=== PATIENT | male | born 1980 | race Caucasian/White ===

== ENCOUNTER 2017-12-01 20:32 | Emergency (ER) | payer BC, OTHER ==
[~2017-12-01] VITALS: Ht 182.9 cm; Wt 100.0 kg
[2017-12-01 21:45] VITALS: BP 152/84; PULSE 79; RESP 14; TEMP 97.8; O2SAT 97
[2017-12-02] MEDS ORDERED: SODIUM CHLOR 0.9% 1000 ML INJ 1,000 ML IV ONE (03:45)
--- NOTE | 2017-12-02 03:56 | PD ---
HPI Chief Complaint: Medical Clearance Time Seen by Provider: 03:35 Travel History International Travel<30 days: No Contact w/Intl Traveler<30days: No Traveled to known affect area: No History of Present Illness HPI Patient is a 37-year-old male presenting to the emergency department under [place] act due to public intoxication. Patient allegedly called a hotline and made suicidal statements. Patient admitted to drinking too much tonight. He denies any psychiatric history of previous suicide attempt. Symptom onset is unknown, symptoms were likely triggered from alcohol. He has no physical complaints at this time. [facility] Past Medical History Medical History: Denies Significant Hx Diminished Hearing: No Tetanus Vaccination: Unknown Influenza Vaccination: No Past Surgical History Surgical History: No Previous Surgery Social History Alcohol Use: Yes Tobacco Use: No Substance Use: No Allergies-Medications (Allergen,Severity, Reaction): Coded Allergies: No Known Allergies (Unverified , 12/01/17) Review of Systems Except as stated in HPI: all other systems reviewed are Neg Psychiatric: Positive: Substance Abuse, No: Suicidal Ideations, Homicidal Ideation Physical Exam Narrative GENERAL: Well-developed, well-nourished, alert male. Presenting in no acute distress. SKIN: Warm and dry. HEAD: Atraumatic. Normocephalic. EYES: Pupils equal and round. No scleral icterus. No injection or drainage. ENT: No nasal bleeding or discharge. Mucous membranes pink and moist. NECK: Trachea midline. No JVD. CARDIOVASCULAR: Regular rate and rhythm. RESPIRATORY: No accessory muscle use. Clear to auscultation. Breath sounds equal bilaterally. GASTROINTESTINAL: Abdomen soft, non-tender, nondistended. Hepatic and splenic margins not palpable. MUSCULOSKELETAL: Extremities without clubbing, cyanosis, or edema. No obvious deformities. NEUROLOGICAL: Awake and alert. No obvious cranial nerve deficits. Motor grossly within normal limits. Five out of 5 muscle strength in the arms and legs. Normal speech. PSYCHIATRIC: Appropriate mood and affect; insight and judgment normal. Data Data Last Documented VS Vital Signs Date Time Temp Pulse Resp B/P (MAP) Pulse Ox O2 Delivery O2 Flow Rate FiO2 12/01/17 21:45 97.8 79 14 152/84 (106) 97 Room Air Orders Orders Alcohol (Ethanol) (12/02/17 03:34) Iv Access Insert/Monitor (12/02/17 03:34) Sodium Chlor 0.9% 1000 Ml Inj (Ns 1000 M (12/02/17 03:45) Labs Laboratory Tests Test 12/02/17 03:51 Ethyl Alcohol Level 108 MG/DL MDM Medical Decision Making Medical Screen Exam Complete: Yes Emergency Medical Condition: Yes Interpretation(s) Vital Signs Date Time Temp Pulse Resp B/P (MAP) Pulse Ox O2 Delivery O2 Flow Rate FiO2 12/01/17 21:45 97.8 79 14 152/84 (106) 97 Room Air Differential Diagnosis Intoxication versus mood disorder versus suicidal ideations versus other Narrative Course Patient is well-appearing 37-year-old male presenting under [place] act due to intoxication and making suicidal statements to a hotline. Vital signs are stable, patient is in the emergency department for 7 hours prior to my assessment. He currently appears sober, he is cooperative and calm. Will assess an alcohol level and if normal patient will be discharged home. Alcohol level is 108. When patient can get a ride established he will be discharged home. He is already demonstrated safe ambulation when he was brought back to [facility]. He does not appear intoxicated at this time. He further denies any suicidal ideations. He states that he has never had any history of psychiatric illness. Diagnosis Primary Impression: Alcohol intoxication Qualified Codes: F10.920 - Alcohol use, unspecified with intoxication, uncomplicated Referrals: Primary Care Physician Patient Instructions: Abuse of Alcohol (ED), General Instructions Additional Instructions: Follow-up with your primary doctor Avoid excessive intake of alcohol Drink more water Return to emergency department for any new or worsening symptoms Med/Other Pt SpecificInfo: No Change to Meds Disposition: 01 DISCHARGE HOME Condition: Stable Francia Moraes Dec 02, 2017 03:56
== END 2017-12-02 06:10 | disposition home or self-care (01) ==
LOC: NEPD 20:32
DX: F10.129 Alcohol abuse with intoxication, unspecified (principal)
CPT/HCPCS: 80307; 99284; J7030